=== PATIENT | female | born 1960 | race African-American/Black ===

== ENCOUNTER 2023-06-23 10:36 | Inpatient (IN) | payer BC, OTHER ==
[2023-06-23 11:46] LABS: EPI CELLS >36 /uL (0-25.1); HYALINE CASTS 16 /uL (0-3.1); URINE APPEARANCE CLOUDY; URINE BACTERIA 5 /uL (0-1359); URINE BILIRUBIN 1+ (NEGATIVE); URINE COLOR DK YELLOW; URINE GLUCOSE (UA) NEGATIVE (NEGATIVE); URINE KETONE TRACE (NEGATIVE); URINE LEUK ESTERASE NEGATIVE (NEGATIVE); URINE NITRITE NEGATIVE (NEGATIVE); URINE PROTEIN 3+ (NEGATIVE); URINE RBC 14 /uL (0-23.9)
[2023-06-23 12:15] LABS: BASO % 0.2 % (0-2.0); HEMATOCRIT 43.1 % (32.4-45.2); HEMOGLOBIN 14.7 GM/dL (10.7-15.3); LYMPH % 3.6 % (8-40); MCH 29.7 pg (25.7-33.7); MCHC 34.1 g/dl (32.0-36.0); MEAN CELL VOLUME 87.1 fl (80-96); MEAN PLT VOLUME 8.2 fl (7.5-11.1); NEUT % 88.2 % (42.8-82.8); PLATELET COUNT 230 10^3/uL (134-434); RBC 4.95 M/mm3 (3.60-5.2); RDW 13.9 % (11.6-15.6); WHITE BLOOD COUNT 11.3 K/mm3 (4.0-10.0)
[2023-06-23] MEDS ORDERED: ACETAMINOPHEN INJECTION 100 ML IVPB ONE (12:16)
[2023-06-23] MEDS ORDERED: PIPERACILLIN/TAZOB 4.5 GM 4.5 GM/100 ML BAG IVPB ONE (12:16)
[2023-06-23 12:18] LABS: VENOUS BASE EXCESS 9.6 mmol/L (-2-2); VENOUS PCO2 53.7 mmHg (38-52); VENOUS PH 7.441 (7.310-7.410)
[2023-06-23 12:21] LABS: INR 1.23 (0.83-1.09); PROTHROMBIN TIME (PATIENT) 14.2 SEC (9.7-13.0)
[2023-06-23 12:23] LABS: ACTIVATED PTT 30.7 SECONDS (25.2-36.5)
[2023-06-23 12:25] LABS: URINE WBC 71 /uL (0-25.8)
[2023-06-23] MEDS: ACETAMINOPHEN 1000 MG/100 ML BAG IVPB ONE (12:39)
[2023-06-23] MEDS: PIPERACILLIN/TAZOB 4.5 GM 4.5 GM in DEXTROSE 5%-WATER - 100 ML IVPB ONE (12:44)
[2023-06-23 12:48] LABS: ALBUMIN 3.1 g/dl (3.4-5.0); BLOOD UREA NITROGEN 45.6 mg/dL (7-18); CALCIUM 9.5 mg/dL (8.5-10.1)
[2023-06-23 12:52] LABS: CREATININE 1.2 mg/dL (0.55-1.3)
[2023-06-23 12:53] LABS: BILIRUBIN,TOTAL 0.8 mg/dL (0.2-1); TOT PROT 8.1 g/dl (6.4-8.2)
[2023-06-23 12:54] LABS: LACTIC ACID 2.5 mmol/L (0.4-2.0)
[2023-06-23] MEDS: SODIUM CHLORIDE 0.9% 1000 ML INFUS.BAG IV ONE (13:11)
[2023-06-23] MEDS ORDERED: AZITHROMYCIN IVPB 500 MG/250 ML BAG IVPB ONE (13:27)
[2023-06-23] MEDS: AZITHROMYCIN IVPB 500 MG in DEXTROSE 5%-WATER - 250 ML IVPB ONE (13:39)
[2023-06-23] MEDS ORDERED: OSELTAMIVIR PHOSPHATE 75 MG CAPSULE ONE ×2 (14:18→22:30)
[2023-06-23] MEDS ORDERED: VANCOMYCIN 1 GRAM (PRE-DOCKED) 1,000 MG/250 ML BAG IVPB ONE (14:18)
[2023-06-23] MEDS: OSELTAMIVIR PHOSPHATE 75 MG CAPSULE PO ONE (14:24)
[2023-06-23] MEDS: VANCOMYCIN 1,000 MG in DEXTROSE 5%-WATER - 250 ML IVPB ONE (14:44)
[2023-06-23] MEDS ORDERED: ACETAMINOPHEN 500 MG TABLET (FP) PO PRN (17:09)
[2023-06-23] MEDS: LACTATED RINGERS SOLUTION 1,000 ML/1,000 ML INFUS.BAG IV SCH (17:28)
[2023-06-23] MEDS ORDERED: OSELTAMIVIR PHOSPHATE 75 MG CAPSULE PO SCH (22:00)
[2023-06-23] MEDS ORDERED: HEPARIN NA (PORCINE) 5,000 UNITS/ML 1ML VIAL ONE (22:30)
[2023-06-23] MEDS ORDERED: DOXYCYCLINE HYCLATE 100 MG VIAL ONE (22:31)
[2023-06-23] MEDS: DOXYCYCLINE INJECTION 100 MG in DEXTROSE 5%-WATER 100 ML IVPB SCH (22:46)
[2023-06-23] MEDS: HEPARIN NA (PORCINE) 5,000 UNITS/ML 1ML VIAL SQ SCH (22:46)
[2023-06-23] MEDS: OSELTAMIVIR PHOSPHATE 30 MG CAPSULE PO SCH (22:46)
[2023-06-24] MEDS ORDERED: DOXYCYCLINE HYCLATE 100 MG VIAL ONE ×2 (10:19→21:03)
[2023-06-24] MEDS ORDERED: HEPARIN NA (PORCINE) 5,000 UNITS/ML 1ML VIAL ONE ×2 (10:19→21:44)
[2023-06-24] MEDS ORDERED: OSELTAMIVIR PHOSPHATE 30 MG CAPSULE ONE (10:19)
[2023-06-24] MEDS ORDERED: CEFTRIAXONE 1 GM/50 ML BAG ONE (10:19)
[2023-06-24] MEDS: CEFTRIAXONE 1 GM in DEXTROSE 5%-WATER - 50 ML IVPB SCH (10:25)
[2023-06-24] MEDS ORDERED: PIPERACILLIN/TAZOB 3.375 GM 3.375 GM/50 ML BAG IVPB ONE (13:10)
[2023-06-24] MEDS: PIPERACILLIN/TAZOB 3.375 GM 3.375 GM in DEXTROSE 5%-WATER - 50 ML IVPB SCH (13:10)
[2023-06-24] MEDS: guaiFENesin 200 MG/10 ML 10 ML UNIT-DOSE CUPS PO PRN (13:19)
[2023-06-24] MEDS ORDERED: guaiFENesin/CODEINE 10 ML UNIT-DOSE CUPS ONE (13:19)
[2023-06-24 13:44] LABS: BASO % 0.1 % (0-2.0); HEMATOCRIT 38.2 % (32.4-45.2); LYMPH % 10.2 % (8-40); MCH 29.8 pg (25.7-33.7); MEAN CELL VOLUME 87.7 fl (80-96); MONO % 8.5 % (3.8-10.2); NEUT % 81.2 % (42.8-82.8); PLATELET COUNT 270 10^3/uL (134-434); RBC 4.36 M/mm3 (3.60-5.2); RDW 13.9 % (11.6-15.6); WHITE BLOOD COUNT 9.7 K/mm3 (4.0-10.0)
[2023-06-24 14:11] LABS: CALCIUM 8.4 mg/dL (8.5-10.1)
[2023-06-24 14:12] LABS: BLOOD UREA NITROGEN 22.2 mg/dL (7-18)
[2023-06-24] MEDS ORDERED: ACETAMINOPHEN 1000 MG/100 ML BAG IVPB PRN (14:12)
[2023-06-24 14:14] LABS: CREATININE 0.7 mg/dL (0.55-1.3)
[2023-06-24] MEDS: LACTATED RINGERS SOLUTION 1000 ML INFUS.BAG IV ONE (14:14)
[2023-06-24] MEDS: POTASSIUM CHLORIDE ORAL LIQUID 20 MEQ/15 ML PO SCH (14:44)
[2023-06-24] MEDS ORDERED: POTASSIUM CHLORIDE ORAL LIQUID 20 MEQ/15 ML ONE ×2 (14:46→21:44)
[2023-06-24] MEDS ORDERED: ALBUTEROL SO4 0.083% IH SOL 2.5 MG/3 ML VIAL.NEB. NEB ONE ×3 (16:47→23:42)
[2023-06-24] MEDS: ALBUTEROL SULFATE 0.021% (0.63 MG/3 ML) VIAL.NEB NEB SCH (16:47)
[2023-06-24] MEDS ORDERED: NICOTINE 7 MG/24 HOURS TOPICAL PATCH TD ONE (16:47)
[2023-06-24] MEDS: NICOTINE 7 MG/24 HOURS TOPICAL PATCH TD SCH (16:47)
[2023-06-24 18:59] LABS: COCAINE, UR NEGATIVE (NEGATIVE); METHADONE, UR NEGATIVE (NEGATIVE); URINE BARBITURATES NEGATIVE (NEGATIVE)
[2023-06-24 19:01] LABS: PHENCYCLIDINE,URINE NEGATIVE (NEGATIVE); URINE BENZODIAZEPINES NEGATIVE (NEGATIVE)
[2023-06-24 19:06] LABS: OPIATES, URI POSITIVE (NEGATIVE); URINE AMPHETAMINES NEGATIVE (NEGATIVE)
[2023-06-24] MEDS ORDERED: OSELTAMIVIR PHOSPHATE 75 MG CAPSULE ONE (21:44)
[2023-06-24] MEDS: OSELTAMIVIR PHOSPHATE 75 MG CAPSULE PO SCH (21:54)
[2023-06-24] MEDS: DOXYCYCLINE INJECTION 100 MG in DEXTROSE 5%-WATER 100 ML IVPB SCH (21:54)
[2023-06-25] MEDS ORDERED: ALBUTEROL SO4 0.083% IH SOL 2.5 MG/3 ML VIAL.NEB. NEB ONE ×2 (03:23→07:48)
[2023-06-25 07:29] LABS: BASO % 0.2 % (0-2.0); EOS % 0.1 % (0-4.5); HEMATOCRIT 35.4 % (32.4-45.2); HEMOGLOBIN 11.7 GM/dL (10.7-15.3); LYMPH % 14.5 % (8-40); MCH 29.2 pg (25.7-33.7); MEAN CELL VOLUME 88.3 fl (80-96); MEAN PLT VOLUME 8.1 fl (7.5-11.1); MONO % 12.5 % (3.8-10.2); NEUT % 72.7 % (42.8-82.8); PLATELET COUNT 279 10^3/uL (134-434); RDW 13.7 % (11.6-15.6); WHITE BLOOD COUNT 9.3 K/mm3 (4.0-10.0)
[2023-06-25 07:32] LABS: POTASSIUM 3.9 mmol/L (3.5-5.1)
[2023-06-25 07:33] LABS: BLOOD UREA NITROGEN 18.2 mg/dL (7-18); CALCIUM 8.5 mg/dL (8.5-10.1)
[2023-06-25 07:36] LABS: CREATININE 0.6 mg/dL (0.55-1.3)
[2023-06-25 07:38] LABS: BILIRUBIN,TOTAL 0.5 mg/dL (0.2-1); TOT PROT 6.1 g/dl (6.4-8.2)
[2023-06-25 07:53] LABS: ALBUMIN 2.4 g/dl (3.4-5.0)
[2023-06-25] MEDS: PIPERACILLIN/TAZOB 3.375 GM 3.375 GM in DEXTROSE 5%-WATER - 50 ML IVPB SCH (08:04)
[2023-06-25] MEDS ORDERED: predniSONE 20 MG TABLET (UD) ONE (11:10)
[2023-06-25] MEDS: predniSONE 20 MG TABLET (UD) PO SCH (11:10)
[2023-06-25] MEDS ORDERED: CEFTRIAXONE 1 GM/50 ML BAG ONE (11:10)
[2023-06-25] MEDS ORDERED: DOXYCYCLINE HYCLATE 100 MG VIAL ONE (11:47)
[2023-06-25 15:12] VITALS: RESP 18
[2023-06-25] MEDS: LACTATED RINGERS SOLUTION 1000 ML INFUS.BAG IV ONE (15:51)
[2023-06-25 17:06] VITALS: BMI 21.2
[2023-06-25] MEDS: DEXTROSE 5%-0.45% SALINE 1,000 ML IV SCH (17:45)
[2023-06-26] MEDS ORDERED: cefTRIAXone SODIUM 1 GM VIAL ONE (09:00)
[2023-06-26 09:45] LABS: BASO % 0.1 % (0-2.0); EOS % 0.1 % (0-4.5); HEMATOCRIT 34.5 % (32.4-45.2); LYMPH % 15.5 % (8-40); MCH 29.9 pg (25.7-33.7); MCHC 34.7 g/dl (32.0-36.0); MEAN CELL VOLUME 86.2 fl (80-96); MEAN PLT VOLUME 7.7 fl (7.5-11.1); MONO % 12.3 % (3.8-10.2); PLATELET COUNT 393 10^3/uL (134-434); RBC 4.01 M/mm3 (3.60-5.2); RDW 13.6 % (11.6-15.6); WHITE BLOOD COUNT 12.1 K/mm3 (4.0-10.0)
[2023-06-26 10:22] LABS: POTASSIUM 4.6 mmol/L (3.5-5.1)
[2023-06-26 10:31] LABS: ALBUMIN 2.3 g/dl (3.4-5.0); BLOOD UREA NITROGEN 16.2 mg/dL (7-18); CALCIUM 9.3 mg/dL (8.5-10.1)
[2023-06-26 10:34] LABS: CREATININE 0.6 mg/dL (0.55-1.3)
[2023-06-26 10:36] LABS: BILIRUBIN,TOTAL 0.4 mg/dL (0.2-1); TOT PROT 6.4 g/dl (6.4-8.2)
[2023-06-26] MEDS ORDERED: IBUPROFEN 800 MG/8 ML IJ IVPB PRN (11:35)
[2023-06-26] MEDS: PANTOPRAZOLE SODIUM 40 MG VIAL IVPUSH SCH (12:44)
[2023-06-27 10:25] LABS: BASO % 0.2 % (0-2.0); EOS % 0.3 % (0-4.5); HEMATOCRIT 37.7 % (32.4-45.2); HEMOGLOBIN 12.6 GM/dL (10.7-15.3); MCHC 33.3 g/dl (32.0-36.0); MEAN CELL VOLUME 87.1 fl (80-96); MEAN PLT VOLUME 7.8 fl (7.5-11.1); MONO % 9.6 % (3.8-10.2); NEUT % 69.9 % (42.8-82.8); PLATELET COUNT 468 10^3/uL (134-434); RBC 4.33 M/mm3 (3.60-5.2); RDW 13.1 % (11.6-15.6); WHITE BLOOD COUNT 11.3 K/mm3 (4.0-10.0)
[2023-06-27 10:47] LABS: POTASSIUM 4.6 mmol/L (3.5-5.1)
[2023-06-27] MEDS: ALBUTEROL SO4 0.083% IH SOL 2.5 MG/3 ML VIAL.NEB. NEB SCH (11:02)
[2023-06-27 11:16] LABS: ALBUMIN 2.7 g/dl (3.4-5.0); BLOOD UREA NITROGEN 14.1 mg/dL (7-18)
[2023-06-27 11:19] LABS: CREATININE 0.7 mg/dL (0.55-1.3)
[2023-06-27 11:20] LABS: BILIRUBIN,TOTAL 0.4 mg/dL (0.2-1); TOT PROT 6.9 g/dl (6.4-8.2)
[2023-06-28 10:05] LABS: BASO % 0.2 % (0-2.0); EOS % 0.9 % (0-4.5); HEMOGLOBIN 13.5 GM/dL (10.7-15.3); LYMPH % 25.9 % (8-40); MCH 29.3 pg (25.7-33.7); MCHC 33.8 g/dl (32.0-36.0); MEAN CELL VOLUME 86.4 fl (80-96); MEAN PLT VOLUME 7.5 fl (7.5-11.1); MONO % 8.9 % (3.8-10.2); NEUT % 64.1 % (42.8-82.8); PLATELET COUNT 554 10^3/uL (134-434); RBC 4.63 M/mm3 (3.60-5.2); RDW 13.6 % (11.6-15.6); WHITE BLOOD COUNT 9.3 K/mm3 (4.0-10.0)
[2023-06-28 10:22] LABS: POTASSIUM 5.1 mmol/L (3.5-5.1)
[2023-06-28 10:29] LABS: CALCIUM 9.3 mg/dL (8.5-10.1)
[2023-06-28 10:30] LABS: ALBUMIN 2.8 g/dl (3.4-5.0); BLOOD UREA NITROGEN 16.4 mg/dL (7-18)
[2023-06-28 10:33] LABS: CREATININE 0.7 mg/dL (0.55-1.3)
[2023-06-28 10:35] LABS: BILIRUBIN,TOTAL 0.4 mg/dL (0.2-1); TOT PROT 7.2 g/dl (6.4-8.2)
[2023-06-28] MEDS: AMOX TR/POT CLAV 875MG/125MG TABLETS (FP) PO ONE (11:15)
[2023-06-28 13:32] VITALS: BP 98/58; PULSE 76; TEMP 97.5
[2023-06-28] MEDS ORDERED: AMOX TR/POT CLAV 875MG/125MG TABLETS (FP) PO SCH (17:30)
[2023-06-29] MEDS ORDERED: AMOX TR/POT CLAV 875MG/125MG TABLETS (FP) PO SCH (10:00)
== END 2023-06-28 16:48 | disposition home or self-care (01) | DRG 193 ==
LOC: JER 10:36 → JERBED 14:54 → J5S 06-25 12:15
PROVIDERS: ADMIT Internal Medicine; ATTEND Internal Medicine
DX: J10.00 Influenza due to other identified influenza virus with unspecified type of pneumonia (principal); J96.01 Acute respiratory failure with hypoxia; E87.20 Acidosis, unspecified; J90 Pleural effusion, not elsewhere classified; F03.90 Unspecified dementia, unspecified severity, without behavioral disturbance, psychotic disturbance, mood disturbance, and anxiety; R41.82 Altered mental status, unspecified; R50.9 Fever, unspecified; D72.829 Elevated white blood cell count, unspecified; F11.10 Opioid abuse, uncomplicated
CPT/HCPCS: 0241U-QW; 36415; 70450-TC; 71045-TC-FY; 80048; 80053; 80307; 81003; 82550; 82553; 82803; 83605; 84484; 85025; 85610; 85730; 86850; 86900; 86901; 87040; 87081; 87086; 87899; 93005; 93010; 94010; 94640; 94761; 97116-GP; 97161-GP; 99285-25; J0131; J1644

== ENCOUNTER 2024-03-02 14:13 | Inpatient (IN) | payer BC ==
[2024-03-02] MEDS: LACTATED RINGERS SOLUTION 1000 ML INFUS.BAG IV ONE ×3 (15:20→19:41)
[2024-03-02] MEDS ORDERED: ACETAMINOPHEN INJECTION 100 ML ONE ×2 (15:22→20:29)
[2024-03-02] MEDS: ACETAMINOPHEN 1000 MG/100 ML BAG IVPB ONE ×2 (15:24→20:58)
[2024-03-02 15:25] LABS: BASO % 0.7 % (0-2.0); EOS % 0.1 % (0-4.5); HEMATOCRIT 45.3 % (32.4-45.2); HEMOGLOBIN 15.4 GM/dL (10.7-15.3); LYMPH % 7.6 % (8-40); MEAN CELL VOLUME 85.3 fl (80-96); MEAN PLT VOLUME 7.4 fl (7.5-11.1); MONO % 7.2 % (3.8-10.2); NEUT % 84.4 % (42.8-82.8); PLATELET COUNT 278 10^3/uL (134-434); RBC 5.32 M/mm3 (3.60-5.2); RDW 14.5 % (11.6-15.6); WHITE BLOOD COUNT 15.1 K/mm3 (4.0-10.0)
[2024-03-02 15:43] LABS: CHLORIDE 101 mmol/L (98-107); SODIUM 128 mmol/L (136-145)
[2024-03-02 15:46] LABS: ALBUMIN 2.8 g/dl (3.4-5.0); BLOOD UREA NITROGEN 29.4 mg/dL (7-18); CALCIUM 9.1 mg/dL (8.5-10.1); CO2 31 mmol/L (21-32); GLUCOSE,RANDOM 102 mg/dL (74-106); MAGNESIUM 2.8 mg/dL (1.8-2.4)
[2024-03-02 15:48] LABS: POTASSIUM > 10.0 mmol/L (3.5-5.1)
[2024-03-02 15:49] LABS: CREATININE 0.8 mg/dL (0.55-1.3)
[2024-03-02 15:50] LABS: PHOSPHOROUS 3.8 mg/dL (2.5-4.9); SGOT/AST 270 U/L (15-37); TOT PROT 8.8 g/dl (6.4-8.2)
[2024-03-02 15:52] LABS: ALK PHOS 100 U/L (45-117)
[2024-03-02] MEDS ORDERED: VANCOMYCIN 1 GRAM (PRE-DOCKED) 1,000 MG/250 ML BAG IVPB ONE (15:52)
[2024-03-02] MEDS ORDERED: PIPERACILLIN/TAZOB 4.5 GM 4.5 GM/100 ML BAG IVPB ONE (15:52)
[2024-03-02] MEDS: PIPERACILLIN/TAZOB 4.5 GM 4.5 GM in DEXTROSE 5%-WATER 100 ML IVPB ONE (16:19)
[2024-03-02] MEDS: VANCOMYCIN 1,000 MG in DEXTROSE 5%-WATER - 250 ML IVPB ONE (16:44)
[2024-03-02 17:42] LABS: POTASSIUM 3.3 mmol/L (3.5-5.1)
[2024-03-02 17:44] LABS: CALCIUM 8.4 mg/dL (8.5-10.1)
[2024-03-02 17:45] LABS: ALBUMIN 2.3 g/dl (3.4-5.0); BLOOD UREA NITROGEN 25.9 mg/dL (7-18)
[2024-03-02 17:48] LABS: CREATININE 0.6 mg/dL (0.55-1.3)
[2024-03-02 17:49] LABS: BILIRUBIN,TOTAL 0.6 mg/dL (0.2-1)
[2024-03-02 17:51] LABS: TOT PROT 5.4 g/dl (6.4-8.2)
[2024-03-02] MEDS: KCL 10 MEQ IVPB 10 MEQ/100 ML INFUS.BAG IVPB SCH (18:18)
[2024-03-02 18:21] LABS: EPI CELLS >36 /uL (0-25.1); HYALINE CASTS 4 /uL (0-3.1); PH,URINE 5.5 (5.0-8.0); URINE APPEARANCE CLEAR; URINE BACTERIA 12 /uL (0-1359); URINE BILIRUBIN NEGATIVE (NEGATIVE); URINE COLOR YELLOW; URINE GLUCOSE (UA) NEGATIVE (NEGATIVE); URINE KETONE TRACE (NEGATIVE); URINE LEUK ESTERASE NEGATIVE (NEGATIVE); URINE NITRITE NEGATIVE (NEGATIVE); URINE PROTEIN 2+ (NEGATIVE); URINE RBC 13 /uL (0-23.9); URINE WBC 27 /uL (0-25.8)
[2024-03-02] MEDS ORDERED: KCL 10 MEQ IVPB 10 MEQ/100 ML INFUS.BAG IVPB ONE ×2 (19:25→20:38)
[2024-03-02 21:59] LABS: BF WBC & OTHER NUCLEATED CELLS 461 /mm3
[2024-03-02 22:06] LABS: N-TERMINAL BNP 219.1 pg/ml (5-125)
[2024-03-02 23:26] LABS: BODY FLUID MACROPHAGES 2 %
[2024-03-03 03:59] LABS: URINE BARBITURATES NEGATIVE (NEGATIVE)
[2024-03-03 04:00] LABS: COCAINE, UR NEGATIVE (NEGATIVE); METHADONE, UR NEGATIVE (NEGATIVE); URINE BENZODIAZEPINES NEGATIVE (NEGATIVE)
[2024-03-03 04:37] LABS: OPIATES, URI NEGATIVE (NEGATIVE); PHENCYCLIDINE,URINE NEGATIVE (NEGATIVE); URINE AMPHETAMINES NEGATIVE (NEGATIVE)
[2024-03-03] MEDS: PIPERACILLIN/TAZOB 3.375 GM 3.375 GM in DEXTROSE 5%-WATER - 50 ML IVPB SCH (06:49)
[2024-03-03 07:01] LABS: HEMOGLOBIN 11.9 GM/dL (10.7-15.3); MCH 29.5 pg (25.7-33.7); MEAN CELL VOLUME 86.6 fl (80-96); MEAN PLT VOLUME 7.6 fl (7.5-11.1); PLATELET COUNT 209 10^3/uL (134-434); RBC 4.03 M/mm3 (3.60-5.2); RDW 13.6 % (11.6-15.6); WHITE BLOOD COUNT 10.5 K/mm3 (4.0-10.0)
[2024-03-03 07:16] LABS: POTASSIUM 3.2 mmol/L (3.5-5.1)
[2024-03-03 07:19] LABS: CALCIUM 8.2 mg/dL (8.5-10.1)
[2024-03-03 07:20] LABS: ALBUMIN 2.2 g/dl (3.4-5.0); BLOOD UREA NITROGEN 17.5 mg/dL (7-18); MAGNESIUM 1.9 mg/dL (1.8-2.4)
[2024-03-03 07:23] LABS: CREATININE 0.5 mg/dL (0.55-1.3); PHOSPHOROUS 2.6 mg/dL (2.5-4.9)
[2024-03-03 07:25] LABS: TOT PROT 5.3 g/dl (6.4-8.2)
[2024-03-03 07:31] LABS: BILIRUBIN,TOTAL 0.5 mg/dL (0.2-1)
[2024-03-03] MEDS: KCL 10 MEQ IVPB 10 MEQ/100 ML INFUS.BAG IVPB SCH (09:08)
[2024-03-03 10:11] LABS: URINE AMPHETAMINES NEGATIVE (NEGATIVE)
[2024-03-03 10:22] LABS: URINE BENZODIAZEPINES NEGATIVE (NEGATIVE)
[2024-03-03 10:43] LABS: COCAINE, UR POSITIVE (NEGATIVE); METHADONE, UR NEGATIVE (NEGATIVE); OPIATES, URI NEGATIVE (NEGATIVE); PHENCYCLIDINE,URINE NEGATIVE (NEGATIVE); URINE BARBITURATES NEGATIVE (NEGATIVE)
[2024-03-03] MEDS ORDERED: morphine CARPU-JECT 2 MG/1 ML DISP.SYRIN IM PRN (12:03)
[2024-03-03] MEDS ORDERED: ACETAMINOPHEN 1000 MG/100 ML BAG IVPB PRN (12:04)
[2024-03-03] MEDS ORDERED: PIPERACILLIN/TAZOB 4.5 GM 4.5 GM in DEXTROSE 5%-WATER 100 ML IVPB SCH (18:00)
[2024-03-03] MEDS: CEFAZOLIN SODIUM 2 GM in DEXTROSE 5%-WATER 100 ML IVPB SCH (18:01)
[2024-03-03] MEDS: POTASSIUM PHOSPHATE 15 MM in SODIUM CHLORIDE 250 ML IVPB ONE (20:07)
[2024-03-03] MEDS: HEPARIN NA (PORCINE) 5,000 UNITS/ML 1ML VIAL SQ SCH (21:32)
[2024-03-03] MEDS: AMMONIUM LACTATE 12% LOTION 225 GM BOTTLE TP SCH (21:32)
[2024-03-04] MEDS ORDERED: PIPERACILLIN/TAZOB 3.375 GM 3.375 GM in DEXTROSE 5%-WATER - 50 ML IVPB SCH (02:00)
[2024-03-04 12:00] LABS: HEMATOCRIT 38.5 % (32.4-45.2); HEMOGLOBIN 12.6 GM/dL (10.7-15.3); MCH 28.8 pg (25.7-33.7); MCHC 32.7 g/dl (32.0-36.0); MEAN CELL VOLUME 88.2 fl (80-96); MEAN PLT VOLUME 7.8 fl (7.5-11.1); PLATELET COUNT 250 10^3/uL (134-434); RBC 4.37 M/mm3 (3.60-5.2); RDW 13.7 % (11.6-15.6)
[2024-03-04 12:16] LABS: POTASSIUM 3.6 mmol/L (3.5-5.1)
[2024-03-04 12:19] LABS: ALBUMIN 2.5 g/dl (3.4-5.0); CALCIUM 9.1 mg/dL (8.5-10.1)
[2024-03-04 12:23] LABS: BILIRUBIN,TOTAL 0.4 mg/dL (0.2-1); CREATININE 0.6 mg/dL (0.55-1.3)
[2024-03-04 12:24] LABS: TOT PROT 5.9 g/dl (6.4-8.2)
[2024-03-04] MEDS ORDERED: ACETAMINOPHEN 1000 MG/100 ML BAG IVPB PRN (14:56)
[2024-03-04 23:01] VITALS: BMI 24.4
[2024-03-05 07:27] LABS: HEMOGLOBIN 11.8 GM/dL (10.7-15.3); MCH 28.7 pg (25.7-33.7); MCHC 32.7 g/dl (32.0-36.0); MEAN CELL VOLUME 87.7 fl (80-96); MEAN PLT VOLUME 7.7 fl (7.5-11.1); PLATELET COUNT 246 10^3/uL (134-434); RBC 4.11 M/mm3 (3.60-5.2); RDW 13.2 % (11.6-15.6); WHITE BLOOD COUNT 8.6 K/mm3 (4.0-10.0)
[2024-03-05 07:41] LABS: POTASSIUM 3.6 mmol/L (3.5-5.1)
[2024-03-05 07:45] LABS: CALCIUM 8.6 mg/dL (8.5-10.1)
[2024-03-05 07:46] LABS: ALBUMIN 2.3 g/dl (3.4-5.0); BLOOD UREA NITROGEN 9.5 mg/dL (7-18)
[2024-03-05 07:50] LABS: BILIRUBIN,TOTAL 0.3 mg/dL (0.2-1); CREATININE 0.5 mg/dL (0.55-1.3); TOT PROT 5.4 g/dl (6.4-8.2)
[2024-03-05] MEDS: ASCORBIC ACID 250 MG TABLET (FP) PO SCH (11:48)
[2024-03-05] MEDS: MULTIVITAMINS (DAILY MVI) TABLET (FP) PO SCH (11:49)
[2024-03-05] MEDS: ZINC SULFATE 220 MG CAPSULE (FP) PO SCH (11:49)
[2024-03-05] MEDS: MINERAL OIL/PET HY-PHL TOPICAL OINTMENT 454 GM JAR TP SCH (18:00)
[2024-03-05] MEDS: ZINC OXIDE 20% TOPICAL OINTMENT 30 GM TUBE TP SCH (22:11)
[2024-03-06 08:10] LABS: POTASSIUM 3.8 mmol/L (3.5-5.1)
[2024-03-06 08:30] LABS: CALCIUM 8.9 mg/dL (8.5-10.1)
[2024-03-06 08:31] LABS: ALBUMIN 2.4 g/dl (3.4-5.0); BLOOD UREA NITROGEN 8.2 mg/dL (7-18)
[2024-03-06 08:34] LABS: CREATININE 0.5 mg/dL (0.55-1.3)
[2024-03-06 08:35] LABS: BILIRUBIN,TOTAL 0.2 mg/dL (0.2-1); TOT PROT 5.7 g/dl (6.4-8.2)
[2024-03-07 09:50] LABS: POTASSIUM 4.4 mmol/L (3.5-5.1)
[2024-03-07 09:53] LABS: BLOOD UREA NITROGEN 10.7 mg/dL (7-18)
[2024-03-07 10:00] LABS: CALCIUM 9.3 mg/dL (8.5-10.1)
[2024-03-07 10:02] LABS: CREATININE 0.5 mg/dL (0.55-1.3)
[2024-03-08] MEDS: CEPHALEXIN MONOHYDRATE 500 MG CAPSULE (UD) PO SCH (17:39)
[2024-03-12 07:07] LABS: HEMOGLOBIN 13.4 GM/dL (10.7-15.3); MCH 28.6 pg (25.7-33.7); MCHC 32.6 g/dl (32.0-36.0); MEAN CELL VOLUME 87.7 fl (80-96); MEAN PLT VOLUME 7.3 fl (7.5-11.1); PLATELET COUNT 447 10^3/uL (134-434); RBC 4.68 M/mm3 (3.60-5.2); RDW 13.7 % (11.6-15.6); WHITE BLOOD COUNT 16.5 K/mm3 (4.0-10.0)
[2024-03-12 07:29] LABS: POTASSIUM 4.2 mmol/L (3.5-5.1)
[2024-03-12 07:30] LABS: CALCIUM 9.4 mg/dL (8.5-10.1)
[2024-03-12 07:31] LABS: BLOOD UREA NITROGEN 20.6 mg/dL (7-18)
[2024-03-12 07:35] LABS: BILIRUBIN,TOTAL 0.4 mg/dL (0.2-1); CREATININE 0.7 mg/dL (0.55-1.3); TOT PROT 7.2 g/dl (6.4-8.2)
[2024-03-12 07:38] LABS: ALBUMIN 3.2 g/dl (3.4-5.0)
[2024-03-13 10:08] LABS: HEMATOCRIT 41.1 % (32.4-45.2); HEMOGLOBIN 13.7 GM/dL (10.7-15.3); MCH 29.1 pg (25.7-33.7); MCHC 33.5 g/dl (32.0-36.0); MEAN CELL VOLUME 87.1 fl (80-96); MEAN PLT VOLUME 7.5 fl (7.5-11.1); PLATELET COUNT 434 10^3/uL (134-434); RBC 4.72 M/mm3 (3.60-5.2); RDW 14.1 % (11.6-15.6); WHITE BLOOD COUNT 10.2 K/mm3 (4.0-10.0)
[2024-03-13] MEDS: ASCORBIC ACID 250 MG TABLET (FP) PO SCH (10:10)
[2024-03-13] MEDS: ZINC SULFATE 220 MG CAPSULE (FP) PO SCH (10:10)
[2024-03-13] MEDS: MULTIVITAMINS (DAILY MVI) TABLET (FP) PO SCH (10:10)
[2024-03-13 10:37] LABS: ALBUMIN 3.1 g/dl (3.4-5.0)
[2024-03-13 10:38] LABS: BLOOD UREA NITROGEN 17.4 mg/dL (7-18); MAGNESIUM 2.2 mg/dL (1.8-2.4)
[2024-03-13 10:41] LABS: CREATININE 0.6 mg/dL (0.55-1.3); PHOSPHOROUS 3.6 mg/dL (2.5-4.9)
[2024-03-13 10:42] LABS: BILIRUBIN,TOTAL 0.6 mg/dL (0.2-1); TOT PROT 7.1 g/dl (6.4-8.2)
[2024-03-13] MEDS: ZINC OXIDE 20% TOPICAL OINTMENT 30 GM TUBE TP SCH (11:56)
[2024-03-13] MEDS: AMMONIUM LACTATE 12% LOTION 225 GM BOTTLE TP SCH (12:04)
[2024-03-13] MEDS: MINERAL OIL/PET HY-PHL TOPICAL OINTMENT 454 GM JAR TP SCH (13:09)
[2024-03-13] MEDS ORDERED: ACETAMINOPHEN 325 MG TABLET (FP) PO PRN (15:19)
[2024-03-14 10:48] LABS: HEMATOCRIT 40.2 % (32.4-45.2); HEMOGLOBIN 13.7 GM/dL (10.7-15.3); MCH 29.7 pg (25.7-33.7); MCHC 34.1 g/dl (32.0-36.0); MEAN CELL VOLUME 87.2 fl (80-96); MEAN PLT VOLUME 7.5 fl (7.5-11.1); PLATELET COUNT 476 10^3/uL (134-434); RBC 4.62 M/mm3 (3.60-5.2)
[2024-03-14 10:55] LABS: INR 1.11 (0.83-1.09); PROTHROMBIN TIME (PATIENT) 12.7 SEC (9.7-13.0)
[2024-03-14 11:15] LABS: POTASSIUM 4.3 mmol/L (3.5-5.1)
[2024-03-14 11:21] LABS: ALBUMIN 3.1 g/dl (3.4-5.0); CALCIUM 9.5 mg/dL (8.5-10.1)
[2024-03-14 11:22] LABS: BLOOD UREA NITROGEN 19.6 mg/dL (7-18)
[2024-03-14 11:24] LABS: CREATININE 0.6 mg/dL (0.55-1.3)
[2024-03-14 11:26] LABS: BILIRUBIN,TOTAL 0.4 mg/dL (0.2-1); TOT PROT 7.1 g/dl (6.4-8.2)
[2024-03-14] MEDS: DOCUSATE SODIUM 100 MG CAPSULE (FP) PO SCH (12:23)
[2024-03-14] MEDS ORDERED: BUPIVACAINE HCL/PF 0.5% (5MG/ML) 10 ML VIAL ONE (13:22)
[2024-03-14] MEDS ORDERED: LIDOCAINE 1%/EPI 1:100000 (20 ML MULTI DOSE VIAL) ONE (13:23)
[2024-03-14] MEDS ORDERED: ONDANSETRON 4 MG/2 ML VIAL IVPUSH PRN (15:34)
[2024-03-14] MEDS: LACTATED RINGERS SOLUTION 1,000 ML IV SCH (18:52)
[2024-03-14] MEDS: HEPARIN NA (PORCINE) 5,000 UNITS/ML 1ML VIAL SQ SCH (21:21)
[2024-03-15] MEDS: ASCORBIC ACID 500 MG TABLET (FP) PO SCH (21:28)
[2024-03-16 08:35] LABS: HEMATOCRIT 41.5 % (32.4-45.2); HEMOGLOBIN 13.4 GM/dL (10.7-15.3); MCH 28.7 pg (25.7-33.7); MCHC 32.3 g/dl (32.0-36.0); MEAN CELL VOLUME 88.6 fl (80-96); MEAN PLT VOLUME 7.3 fl (7.5-11.1); PLATELET COUNT 450 10^3/uL (134-434); RBC 4.68 M/mm3 (3.60-5.2); RDW 13.5 % (11.6-15.6); WHITE BLOOD COUNT 5.5 K/mm3 (4.0-10.0)
[2024-03-16 08:49] LABS: POTASSIUM 4.2 mmol/L (3.5-5.1)
[2024-03-16 08:57] LABS: BLOOD UREA NITROGEN 18.1 mg/dL (7-18); CALCIUM 9.5 mg/dL (8.5-10.1)
[2024-03-16 08:59] LABS: CREATININE 0.5 mg/dL (0.55-1.3)
[2024-03-16 09:02] LABS: BILIRUBIN,TOTAL 0.5 mg/dL (0.2-1)
[2024-03-16 15:31] LABS: VENOUS BASE EXCESS 7.7 mmol/L (-2-2); VENOUS O2 SATURATION 55.3 % (70-80); VENOUS PCO2 49.9 mmHg (38-52); VENOUS PH 7.441 (7.310-7.410)
[2024-03-17 10:27] LABS: HEMATOCRIT 42.6 % (32.4-45.2); HEMOGLOBIN 14.2 GM/dL (10.7-15.3); MCH 29.1 pg (25.7-33.7); MCHC 33.2 g/dl (32.0-36.0); MEAN CELL VOLUME 87.4 fl (80-96); MEAN PLT VOLUME 7.9 fl (7.5-11.1); PLATELET COUNT 346 10^3/uL (134-434); RBC 4.88 M/mm3 (3.60-5.2); RDW 13.8 % (11.6-15.6); WHITE BLOOD COUNT 5.3 K/mm3 (4.0-10.0)
[2024-03-17 10:45] LABS: POTASSIUM 4.3 mmol/L (3.5-5.1)
[2024-03-17 10:47] LABS: BLOOD UREA NITROGEN 17.2 mg/dL (7-18); CALCIUM 9.6 mg/dL (8.5-10.1)
[2024-03-17 10:48] LABS: ALBUMIN 3.1 g/dl (3.4-5.0)
[2024-03-17 10:51] LABS: CREATININE 0.5 mg/dL (0.55-1.3)
[2024-03-17 10:52] LABS: BILIRUBIN,TOTAL 0.3 mg/dL (0.2-1); TOT PROT 7.2 g/dl (6.4-8.2)
[2024-03-17] MEDS ORDERED: BUPIVACAINE HCL/PF 0.5% (5MG/ML) 10 ML VIAL ONE (13:50)
[2024-03-17] MEDS ORDERED: GENTAMICIN SO4 80 MG/2 ML VIAL ONE ×2 (13:50→15:11)
[2024-03-17] MEDS ORDERED: LIDOCAINE 1%/EPI 1:100000 (20 ML MULTI DOSE VIAL) ONE (13:51)
[2024-03-17] MEDS ORDERED: GLYCOPYRROLATE 0.2 MG/1 ML VIAL ONE (14:18)
[2024-03-17] MEDS ORDERED: LIDOCAINE HCL/PF 2% SDV 5ML VIAL ONE (14:18)
[2024-03-17] MEDS ORDERED: DEXAMETHASONE SOD PHOSPHATE 4 MG/1 ML VIAL ONE (14:18)
[2024-03-17] MEDS ORDERED: ONDANSETRON 4 MG/2 ML VIAL ONE (14:18)
[2024-03-17] MEDS ORDERED: PROPOFOL 20 ML ONE (14:21)
[2024-03-17] MEDS ORDERED: MIDAZOLAM HCL 2 MG/2 ML SINGLE DOSE VIAL ONE (14:34)
[2024-03-17] MEDS: BUPIVACAINE HCL/PF 0.5% (5MG/ML) 10 ML VIAL IJ ONE ×2 (14:52)
[2024-03-17] MEDS: LIDOCAINE 1%/EPI 1:100000 (20 ML MULTI DOSE VIAL) IJ ONE ×2 (14:52)
[2024-03-17] MEDS ORDERED: ACETAMINOPHEN INJECTION 100 ML ONE (15:04)
[2024-03-17] MEDS ORDERED: KETOROLAC TROMETHAMINE 30 MG/1 ML VIAL ONE (15:06)
[2024-03-17] MEDS ORDERED: BACITRACIN ZINC 15 GM TUBE TOPICAL OINTMENT ONE (15:11)
[2024-03-17 17:03] VITALS: RESP 18
[2024-03-17] MEDS: LACTATED RINGERS SOLUTION 1,000 ML IV SCH (18:35)
[2024-03-17] MEDS: COLLAGENASE CLOSTRIDIUM HIST. 30 GRAMS TUBE TP SCH (18:35)
[2024-03-17] MEDS: AMMONIUM LACTATE 12% LOTION 225 GM BOTTLE TP SCH (22:13)
[2024-03-17] MEDS: ASCORBIC ACID 500 MG TABLET (FP) PO SCH (22:13)
[2024-03-17] MEDS: HEPARIN NA (PORCINE) 5,000 UNITS/ML 1ML VIAL SQ SCH (22:13)
[2024-03-17] MEDS: ZINC OXIDE 20% TOPICAL OINTMENT 30 GM TUBE TP SCH (22:14)
[2024-03-18] MEDS: DOCUSATE SODIUM 100 MG CAPSULE (FP) PO SCH (09:11)
[2024-03-18] MEDS: MULTIVITAMINS (DAILY MVI) TABLET (FP) PO SCH (09:11)
[2024-03-18] MEDS: MINERAL OIL/PET HY-PHL TOPICAL OINTMENT 454 GM JAR TP SCH (09:11)
[2024-03-18] MEDS: SILVER SULFADIAZINE 1% TOP CREAM 50 GM JAR TP SCH (14:51)
[2024-03-18] MEDS: COLLAGENASE CLOSTRIDIUM HIST. 30 GRAMS TUBE TP SCH (14:59)
[2024-03-18 16:05] VITALS: BP 96/80; PULSE 71; TEMP 97.9
== END 2024-03-18 17:40 | DRG 853 ==
LOC: JER 14:13 → JERBED 19:26 → J4W 23:28 → J6S 03-12 22:47
PROVIDERS: ADMIT Internal Medicine; ATTEND Internal Medicine
PROC: 0HBRXZZ Excision of Toe Nail, External Approach (ICD-10-PCS; 2024-03-05)
PROC: 3E10X8Z Irrigation of Skin and Mucous Membranes using Irrigating Substance (ICD-10-PCS; 2024-03-17)
PROC: 0JBM0ZZ Excision of Left Upper Leg Subcutaneous Tissue and Fascia, Open Approach (ICD-10-PCS; principal; 2024-03-17 16:00)
DX: A41.9 Sepsis, unspecified organism (principal); E43 Unspecified severe protein-calorie malnutrition; L89.224 Pressure ulcer of left hip, stage 4; L89.323 Pressure ulcer of left buttock, stage 3; L89.313 Pressure ulcer of right buttock, stage 3; L03.114 Cellulitis of left upper limb; E87.20 Acidosis, unspecified; E87.6 Hypokalemia; Z68.24 Body mass index [BMI] 24.0-24.9, adult; F03.90 Unspecified dementia, unspecified severity, without behavioral disturbance, psychotic disturbance, mood disturbance, and anxiety; K59.00 Constipation, unspecified; B35.1 Tinea unguium; R51.9 Headache, unspecified
CPT/HCPCS: 0241U-QW; 36415; 70450-TC; 71045-TC-FY; 71250-TC; 72170-TC-FY; 73070-TC-LT-FY; 73200-TC-RT; 73552-TC-LT-FY; 74176-TC; 80048; 80053; 80307; 81003; 82803; 82962; 83605; 83735; 83880; 84100; 84436; 84443; 84484; 85025; 85027; 85610; 85651; 85730; 86140; 86850; 86900; 86901; 87040; 87070; 87075; 87086; 87205; 88304-TC; 89060; 93005; 93010; 94760; 97116-GP; 97162-GP; 99285-25; J0131; J1644

== ENCOUNTER 2024-12-24 10:01 | Inpatient (IN) | payer BC, OTHER ==
[2024-12-24 11:14] LABS: EPI CELLS >36 /uL (0-25.1); HYALINE CASTS 8 /uL (0-3.1); URINE APPEARANCE CLOUDY; URINE BACTERIA 8 /uL (0-1359); URINE BILIRUBIN NEGATIVE (NEGATIVE); URINE COLOR DK YELLOW; URINE GLUCOSE (UA) NEGATIVE (NEGATIVE); URINE KETONE TRACE (NEGATIVE); URINE LEUK ESTERASE NEGATIVE (NEGATIVE); URINE NITRITE NEGATIVE (NEGATIVE); URINE PROTEIN 1+ (NEGATIVE); URINE RBC 9 /uL (0-23.9); URINE UROBILINOGEN 1.0 mg/dL (0.2-1.0); URINE WBC 28 /uL (0-25.8)
[2024-12-24] MEDS: SODIUM CHLORIDE 500 ML IV STA (11:23)
[2024-12-24 12:57] LABS: ABSOLUTE IMMATURE GRANULOCYTES 0.06 x10^3/uL (0.0-0.031); BASOPHILS # 0.03 x10^3/uL (0.01-0.08); EOSINOPHIL % 0.2 % (0.7-5.8); EOSINOPHILS # 0.03 x10^3/uL (0.04-0.36); MCHC 32.0 g/dl (32.2-35.5); MEAN CELL VOLUME 87.5 fl (79.4-94.8); MEAN PLT VOLUME 10.5 fl (9.4-12.3); MONOCYTE # 0.89 x10^3/uL (0.24-0.86); MONOCYTE % 7.4 % (4.7-12.5); RDW 12.7 % (12.4-16.4)
[2024-12-24 13:05] LABS: INR 1.15 (0.83-1.09); PROTHROMBIN TIME (PATIENT) 12.7 SEC (9.7-13.0)
[2024-12-24 13:08] LABS: ACTIVATED PTT 28.1 SECONDS (25.2-36.5)
[2024-12-24 13:27] LABS: CO2 29.0 mmol/L (21-32); GLUCOSE,RANDOM 98.0 mg/dL (74-106)
[2024-12-24 13:30] LABS: CREATININE 0.6 mg/dL (0.55-1.3); SGOT/AST 35.0 U/L (15-37); SGPT/ALT 37.0 U/L (13-61)
[2024-12-24 13:31] LABS: TOT PROT 7.3 g/dl (6.4-8.2)
[2024-12-24 13:33] LABS: ALK PHOS 125.0 U/L (45-117)
[2024-12-24] MEDS: LACTATED RINGERS SOLUTION 1,000 ML/1,000 ML INFUS.BAG IV SCH (15:23)
[2024-12-24] MEDS: VANCOMYCIN/WATER FOR INJ (PEG) 1,000 MG/200 ML BAG IVPB SCH (19:04)
[2024-12-24] MEDS: VANCOMYCIN 1,000 MG in DEXTROSE 5%-WATER - 250 ML IVPB SCH (19:46)
[2024-12-25] MEDS: ACETAMINOPHEN 1000 MG/100 ML BAG IVPB PRN (08:32)
[2024-12-25 09:38] LABS: MCHC 32.1 g/dl (32.2-35.5); MEAN CELL VOLUME 88.3 fl (79.4-94.8); MEAN PLT VOLUME 10.5 fl (9.4-12.3); RDW 12.7 % (12.4-16.4)
[2024-12-25 09:54] LABS: CO2 28.0 mmol/L (21-32); GLUCOSE,RANDOM 95.0 mg/dL (74-106)
[2024-12-25 09:57] LABS: CREATININE 0.7 mg/dL (0.55-1.3); SGOT/AST 74.0 U/L (15-37); SGPT/ALT 41.0 U/L (13-61)
[2024-12-25 09:59] LABS: TOT PROT 6.6 g/dl (6.4-8.2)
[2024-12-25 10:00] LABS: ALK PHOS 107.0 U/L (45-117)
[2024-12-25] MEDS: ENOXAPARIN NA (PORCINE) 40 MG/0.4 ML DISP.SYRIN SQ SCH (11:16)
[2024-12-25 12:40] VITALS: BMI 20.6
[2024-12-25] MEDS: COLLAGENASE CLOSTRIDIUM HIST. 30 GRAMS TUBE TP SCH (17:57)
[2024-12-25] MEDS: CEFTRIAXONE 1 GM in DEXTROSE 5%-WATER - 50 ML IVPB SCH (21:55)
[2024-12-25] MEDS: KCL 10 MEQ IVPB 10 MEQ/100 ML INFUS.BAG IVPB SCH (21:55)
[2024-12-26] MEDS: ACETAMINOPHEN 1000 MG/100 ML BAG IVPB PRN (21:32)
[2024-12-27 08:13] LABS: ABSOLUTE IMMATURE GRANULOCYTES 0.04 x10^3/uL (0.0-0.031); BASOPHILS # 0.03 x10^3/uL (0.01-0.08); EOSINOPHIL % 0.6 % (0.7-5.8); EOSINOPHILS # 0.05 x10^3/uL (0.04-0.36); MCHC 32.5 g/dl (32.2-35.5); MEAN CELL VOLUME 87.1 fl (79.4-94.8); MEAN PLT VOLUME 10.0 fl (9.4-12.3); MONOCYTE # 0.72 x10^3/uL (0.24-0.86); MONOCYTE % 9.0 % (4.7-12.5); RDW 12.7 % (12.4-16.4)
[2024-12-27 09:08] LABS: CO2 31.0 mmol/L (21-32); GLUCOSE,RANDOM 87.0 mg/dL (74-106)
[2024-12-27 09:10] LABS: SGPT/ALT 45.0 U/L (13-61)
[2024-12-27 09:11] LABS: CREATININE 0.4 mg/dL (0.55-1.3); SGOT/AST 69.0 U/L (15-37)
[2024-12-27 09:12] LABS: TOT PROT 5.4 g/dl (6.4-8.2)
[2024-12-27 09:13] LABS: ALK PHOS 85.0 U/L (45-117)
[2024-12-27] MEDS: POTASSIUM CHLORIDE ORAL LIQUID 20 MEQ/15 ML PO ONE (10:10)
[2024-12-27] MEDS: VANCOMYCIN 1,000 MG in DEXTROSE 5%-WATER - 250 ML IVPB SCH (10:30)
[2024-12-28 03:21] LABS: HCV DIAGNOSTIC IN-HOUSE W/RFLX NON-REACTIVE (NONREACTIVE)
[2024-12-28 09:42] LABS: MCHC 32.8 g/dl (32.2-35.5); MEAN CELL VOLUME 87.3 fl (79.4-94.8); MEAN PLT VOLUME 9.4 fl (9.4-12.3); RDW 12.7 % (12.4-16.4)
[2024-12-28 10:12] LABS: CO2 30.0 mmol/L (21-32); GLUCOSE,RANDOM 127.0 mg/dL (74-106)
[2024-12-28 10:15] LABS: CREATININE 0.5 mg/dL (0.55-1.3)
[2024-12-28] MEDS: ZINC OXIDE/PANTHENOL/VITAMIN E 56 GM TUBE TP PRN (18:12)
[2024-12-29 09:18] LABS: MCHC 32.4 g/dl (32.2-35.5); MEAN CELL VOLUME 88.5 fl (79.4-94.8); MEAN PLT VOLUME 10.0 fl (9.4-12.3); RDW 12.9 % (12.4-16.4)
[2024-12-29 09:50] LABS: CO2 33.0 mmol/L (21-32); GLUCOSE,RANDOM 110.0 mg/dL (74-106)
[2024-12-29 09:53] LABS: CREATININE 0.45 mg/dL (0.55-1.3)
[2024-12-30 10:42] LABS: ABSOLUTE IMMATURE GRANULOCYTES 0.02 x10^3/uL (0.0-0.031); BASOPHILS # 0.03 x10^3/uL (0.01-0.08); EOSINOPHIL % 0.9 % (0.7-5.8); EOSINOPHILS # 0.08 x10^3/uL (0.04-0.36); MCHC 31.7 g/dl (32.2-35.5); MEAN CELL VOLUME 90.0 fl (79.4-94.8); MEAN PLT VOLUME 9.6 fl (9.4-12.3); MONOCYTE # 0.65 x10^3/uL (0.24-0.86); MONOCYTE % 7.6 % (4.7-12.5); RDW 13.1 % (12.4-16.4)
[2024-12-30 11:15] LABS: GLUCOSE,RANDOM 90.0 mg/dL (74-106); TOT PROT 6.0 g/dl (6.4-8.2)
[2024-12-30 11:16] LABS: CO2 31.0 mmol/L (21-32)
[2024-12-30 11:17] LABS: ALK PHOS 98.0 U/L (40-150)
[2024-12-30 11:20] LABS: CREATININE 0.5 mg/dL (0.55-1.3); SGOT/AST 54.0 U/L (5-34); SGPT/ALT 56.0 U/L (0-55)
[2024-12-30 12:56] LABS: HIV INTERPRETATION NEGATIVE (NEGATIVE)
[2024-12-30] MEDS: LORazepam 2 MG/ML SDV VIAL IVPUSH ONE (13:13)
[2024-12-30 16:54] LABS: LDL CHOLESTEROL (ONLY SJRH) 113.0 mg/dL (5-100)
[2024-12-30 17:01] LABS: N-TERMINAL BNP 58.0 pg/mL (0-299.9)
[2024-12-30 20:15] LABS: COCAINE, UR NEGATIVE (NEGATIVE)
[2024-12-30 20:16] LABS: METHADONE, UR NEGATIVE (NEGATIVE); OPIATES, URI NEGATIVE (NEGATIVE); PHENCYCLIDINE,URINE NEGATIVE (NEGATIVE); URINE AMPHETAMINES NEGATIVE (NEGATIVE); URINE BARBITURATES NEGATIVE (NEGATIVE); URINE BENZODIAZEPINES NEGATIVE (NEGATIVE)
[2024-12-31 09:38] LABS: ABSOLUTE IMMATURE GRANULOCYTES 0.01 x10^3/uL (0.0-0.031); BASOPHILS # 0.02 x10^3/uL (0.01-0.08); EOSINOPHIL % 1.0 % (0.7-5.8); EOSINOPHILS # 0.07 x10^3/uL (0.04-0.36); MCHC 31.7 g/dl (32.2-35.5); MEAN CELL VOLUME 88.8 fl (79.4-94.8); MEAN PLT VOLUME 9.2 fl (9.4-12.3); MONOCYTE # 0.62 x10^3/uL (0.24-0.86); MONOCYTE % 9.2 % (4.7-12.5); RDW 13.0 % (12.4-16.4)
[2024-12-31 10:39] LABS: GLUCOSE,RANDOM 99.0 mg/dL (74-106); TOT PROT 5.6 g/dl (6.4-8.2)
[2024-12-31 10:40] LABS: CO2 29.0 mmol/L (21-32)
[2024-12-31 10:44] LABS: SGOT/AST 36.0 U/L (5-34); SGPT/ALT 46.0 U/L (0-55)
[2024-12-31 10:45] LABS: CREATININE 0.45 mg/dL (0.55-1.3)
[2024-12-31 11:51] LABS: ALK PHOS 87.0 U/L (40-150)
[2024-12-31] MEDS: AMPICILLIN NA/SULBACTAM NA 3 GM in SODIUM CHLORIDE 100 ML IVPB SCH (12:35)
[2024-12-31] MEDS: DOXYCYCLINE INJECTION 100 MG in DEXTROSE 5%-WATER 100 ML IVPB SCH (13:08)
[2024-12-31] MEDS: SODIUM CHLORIDE 1,000 ML IV SCH (15:31)
[2024-12-31] MEDS: MEMANTINE HCL 10 MG TABLET (FP) PO SCH (21:12)
[2024-12-31] MEDS: DONEPEZIL HCL 10 MG TABLET (FP) PO SCH (21:12)
[2024-12-31] MEDS ORDERED: DONEPEZIL HCL 5 MG TABLET (FP) PO SCH (22:00)
[2025-01-01] MEDS: ASPIRIN COATED 81 MG TABLET.EC PO SCH (11:58)
[2025-01-01] MEDS: ASPIRIN 81 MG CHEWABLE TABLETS PO SCH (15:28)
[2025-01-01 21:14] VITALS: RESP 18
[2025-01-01] MEDS: ROSUVASTATIN CA 5 MG TABLET PO SCH (21:15)
[2025-01-02 15:18] VITALS: BP 122/72; PULSE 91; TEMP 98.4
== END 2025-01-02 16:07 | DRG 884 ==
LOC: JER 10:01 → JERBED 14:31 → J5S 16:23
PROVIDERS: ADMIT Internal Medicine
DX: F03.90 Unspecified dementia, unspecified severity, without behavioral disturbance, psychotic disturbance, mood disturbance, and anxiety (principal); G93.41 Metabolic encephalopathy; I69.354 Hemiplegia and hemiparesis following cerebral infarction affecting left non-dominant side; L97.428 Non-pressure chronic ulcer of left heel and midfoot with other specified severity; R00.0 Tachycardia, unspecified; R50.9 Fever, unspecified; D72.829 Elevated white blood cell count, unspecified; E87.6 Hypokalemia; E88.09 Other disorders of plasma-protein metabolism, not elsewhere classified
CPT/HCPCS: 36415; 70450-TC; 71045-TC-FY; 72170-TC-FY; 73560-TC-LT-FY; 73630-TC-LT; 74177-TC; 80048; 80053; 80061; 80307; 81003; 82607; 82746; 83036; 83735; 83880; 84100; 84439; 84443; 84484; 85025; 85027; 85610; 85651; 85730; 86140; 86780; 86803; 86850; 86900; 86901; 87040; 87086; 87389; 87637-QW; 93005; 93010; 93306-TC; 97116-GP; 97163-GP; 99285-25; Q9967